=== PATIENT | male | born 1955 | race Hispanic/Latino ===

== ENCOUNTER 2017-09-10 07:37 | Day surgery (SDC) | payer OTHER ==
[2017-09-10] MEDS ORDERED: NS 1,000 ML IV (08:00)
[2017-09-10] MEDS ORDERED: LIDOCAINE 2% INJ 100 MG/5 ML SDV (FOR ANES.) As Ordered (08:12)
[2017-09-10] MEDS ORDERED: PROPOFOL 200 MG/20 ML VIAL As Ordered (08:12)
== END 2017-09-10 08:44 | disposition home or self-care (01) ==
LOC: M OPP 07:37
DX: R12 Heartburn (principal); I10 Essential (primary) hypertension; E78.00 Pure hypercholesterolemia, unspecified; K21.9 Gastro-esophageal reflux disease without esophagitis; M12.9 Arthropathy, unspecified; G47.30 Sleep apnea, unspecified; J30.2 Other seasonal allergic rhinitis; Z91.89 Other specified personal risk factors, not elsewhere classified; Z79.82 Long term (current) use of aspirin; Z79.899 Other long term (current) drug therapy; Z88.8 Allergy status to other drugs, medicaments and biological substances
CPT/HCPCS: 43235

== ENCOUNTER 2018-06-13 07:38 | Emergency (ER) | payer OTHER ==
[~2018-06-13] VITALS: Ht 170.2 cm; Wt 101.8 kg
[~2018-06-13 07:38] MED LIST: ASPI1TAB PO; CETI10CH PO; DEXI60CA2 PO; DICL1GEL3 TD; EPIP0.3I2 IJ; FLON1SPR; FLUO1SOL EX; HYDR25TAB PO; KETO2AER2 EXT; LIDO4CRE4 EXT; LIDO5DIS41 TD; NIZO2SHA EXT; PANT40TA3 PO; SIMV40TA2 PO; VOLT1GEL15 TD; ZOSTCRE TOP; [UNRECOGNIZED DRUG - CODE] IJ
[2018-06-13] MEDS ORDERED: NAPR-50 PO (09:10)
[2018-06-13 09:18] VITALS: BP 131/86
--- NOTE | 2018-06-13 09:28 | REP ---
RIGHT SHOULDER, THREE VIEWS: There is no evidence of an acute fracture, dislocation or intrinsic bone disease. IMPRESSION: No fracture or dislocation. Electronically Signed by Bubba Law MD 06/13/2018 03:59 P
== END 2018-06-13 09:19 | disposition home or self-care (01) ==
LOC: M ED 07:38
DX: M75.81 Other shoulder lesions, right shoulder (principal); J30.89 Other allergic rhinitis; Z88.8 Allergy status to other drugs, medicaments and biological substances; Z79.899 Other long term (current) drug therapy; Z79.82 Long term (current) use of aspirin